=== PATIENT | female | born 1970 | race Caucasian/White ===

== ENCOUNTER 2019-06-02 13:10 | Emergency (ER) | payer OTHER, SELFPAY ==
[2019-06-02 13:24] VITALS: BP 126/92; PULSE 73; RESP 19; TEMP 36.8; O2SAT 99
--- NOTE | 2019-06-02 14:34 | ED.WOUNDLAC ---
HPI - Wound/Laceration <DIANNA Tim - Last Filed: 06/02/19 15:10> General Chief Complaint: Wound/Laceration Stated Complaint: Cut finger at work Time Seen by Provider: 06/02/19 13:41 Source: patient Mode of arrival: ambulatory Limitations: no limitations History of Present Illness HPI narrative: The patient is a 48-year-old female who denies medical history who presents with a chief complaint of a laceration to her left pointer finger. 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 Tetanus is up-to-date within the past year. She states she has full range of motion of her left 2nd digit. She states that work try to dress it, but could not get it to stop bleeding. She states it happened approximately 10 30 this morning. Review of Systems <DIANNA Tim - Last Filed: 06/02/19 15:10> Review of Systems GENERAL: Denies chills, fatigue, malaise, fever, sweats. HEENT: Denies sinus pain, ear pain, sore throat, difficulty swallowing, dizziness. RESPIRATORY: Denies dyspnea, cough, wheezing, hemoptysis, sputum. CARDIOVASCULAR: Denies chest pain, palpitations, orthopnea, edema, GASTROINTESTINAL: Denies nausea, vomiting, abdominal pain, diarrhea, constipation, melena. : Denies dysuria, frequency, incontinence, hematuria, urinary retention. MUSCULOSKELETAL: See HPI SKIN: See HPI NEUROLOGIC: Denies weakness, headache, numbness, change in speech, confusion, seizures, incoordination. PSYCHIATRIC: No concerning psychosocial issues. 12 point review of systems is negative except for those stated above PFSH <DIANNA Tim - Last Filed: 06/02/19 15:10> Medical History (Updated 06/02/19 @ 14:37 by DIANNA Tim) Medical history non-contributory (Acute) Social History Smoking Status: Never smoker Social History Smoking Status: Never smoker Exam <DIANNA Tim - Last Filed: 06/02/19 15:10> Narrative Exam Narrative: GENERAL: This is a well-nourished, well-developed patient, no acute distress HEAD: Atraumatic. Normocephalic. No temporal or scalp tenderness. EYES: Pupils equal round and reactive. Extraocular motions intact. No scleral icterus. No injection or drainage. ENT: Nose without bleeding, purulent drainage or septal hematoma. Throat without erythema, tonsillar hypertrophy or exudate. Uvula midline. Airway patent. NECK: Trachea midline. No JVD or lymphadenopathy. Supple, nontender, no meningeal signs. CARDIOVASCULAR: Regular rate and rhythm RESPIRATORY: No cough. No increased respiratory effort. No accessory muscle use. EXTREMITIES: Full range of motion noted left 2nd digit capillary refill less than 2 seconds left 2nd digit BACK: Nontender without deformity or crepitance. No flank tenderness. NEURO: AOx3. SKIN: 0.5 cm avulsion lateral aspect left 2nd digit. Through dermis. No obvious muscle or tendon involvement. Initial Vital Signs Initial Vital Signs: Vital Signs Temperature 98.3 F 06/02/19 13:24 Pulse Rate 73 06/02/19 13:24 Respiratory Rate 06/02/19 13:24 Blood Pressure 126/92 H 06/02/19 13:24 Pulse Oximetry 99 06/02/19 13:24 <Sarita Singletary DO - Last Filed: 06/02/19 18:53> Initial Vital Signs Initial Vital Signs: Vital Signs Temperature 98.3 F 06/02/19 13:24 Pulse Rate 73 06/02/19 13:24 Respiratory Rate 06/02/19 13:24 Blood Pressure 126/92 H 06/02/19 13:24 Pulse Oximetry 99 06/02/19 13:24 Course <JOVI Tim-JOSHUA - Last Filed: 06/02/19 15:10> Vital Signs - 8 hr 06/02/19 13:24 06/02/19 14:46 Temperature 98.3 F Pulse Rate 73 80 Respiratory Rate 19 16 Blood Pressure 126/92 H Blood Pressure [Right Arm] 110/84 Pulse Oximetry 99 100 <Sarita Singletary DO - Last Filed: 06/02/19 18:53> Vital Signs - 8 hr 06/02/19 13:24 06/02/19 14:46 Temperature 98.3 F Pulse Rate 73 80 Respiratory Rate 19 16 Blood Pressure 126/92 H Blood Pressure [Right Arm] 110/84 Pulse Oximetry 99 100 [facility] - Wound/Laceration <Abbie CisnerosJOVI navarro-BC - Last Filed: 06/02/19 15:10> [facility] Narrative Medical decision making narrative: The patient is a 48-year-old female presents with a chief complaint of a laceration. On exam she has an avulsion. Her tetanus is up-to-date the past year. Her laceration was cleansed at length with Hibiclens. It was dressed by nursing with Surgicel. She has full range of motion. Denies any need for x-ray at this point time. Discussed at length monitoring for signs and symptoms of infection. Patient has no questions or concerns upon discharge. Discharge Plan Departure Patient Disposition: Home Clinical Impression: Avulsion of skin Discharge Date/Time: 06/02/19 15:10 Interventions: ED Discharge Assessment Last Done: 06/02/19 15:10 Instructions: DI for Avulsion Laceration (Not Requiring Sutures) Activity Restrictions/Additional Instructions: Please monitor your injury for signs and symptoms of infection such as redness, swelling, pus. Please follow up with primary care provider. Please come back to the emergency department for any acute concerns. Referrals: Santino Da Silva MD [Primary Care Provider] - <Sarita Singletary DO - Last Filed: 06/02/19 18:53> [facility] ED Attending Hunterature Attestation: I was immediately available in the department for consultation. Documentation has been reviewed. I agree with assessment and plan.
--- NOTE | 2019-06-02 14:37 | ED_ITS ---
HPI - Wound/Laceration <DIANNA Tim - Last Filed: 06/02/19 15:10> General Chief Complaint: Wound/Laceration Stated Complaint: Cut finger at work Time Seen by Provider: 06/02/19 13:41 Source: patient Mode of arrival: ambulatory Limitations: no limitations History of Present Illness HPI narrative: The patient is a 48-year-old female who denies medical history who presents with a chief complaint of a laceration to her left pointer finger. 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 Tetanus is up-to-date within the past year. She states she has full range of motion of her left 2nd digit. She states that work try to dress it, but could not get it to stop bleeding. She states it happened approximately 10 30 this morning. Review of Systems <DIANNA Tim - Last Filed: 06/02/19 15:10> Review of Systems GENERAL: Denies chills, fatigue, malaise, fever, sweats. HEENT: Denies sinus pain, ear pain, sore throat, difficulty swallowing, dizziness. RESPIRATORY: Denies dyspnea, cough, wheezing, hemoptysis, sputum. CARDIOVASCULAR: Denies chest pain, palpitations, orthopnea, edema, GASTROINTESTINAL: Denies nausea, vomiting, abdominal pain, diarrhea, constipation, melena. : Denies dysuria, frequency, incontinence, hematuria, urinary retention. MUSCULOSKELETAL: See HPI SKIN: See HPI NEUROLOGIC: Denies weakness, headache, numbness, change in speech, confusion, seizures, incoordination. PSYCHIATRIC: No concerning psychosocial issues. 12 point review of systems is negative except for those stated above PFSH <DIANNA Tim - Last Filed: 06/02/19 15:10> Medical History (Updated 06/02/19 @ 14:37 by DIANNA Tim) Medical history non-contributory (Acute) Social History Smoking Status: Never smoker Social History Smoking Status: Never smoker Exam <DIANNA Tim - Last Filed: 06/02/19 15:10> Narrative Exam Narrative: GENERAL: This is a well-nourished, well-developed patient, no acute distress HEAD: Atraumatic. Normocephalic. No temporal or scalp tenderness. EYES: Pupils equal round and reactive. Extraocular motions intact. No scleral icterus. No injection or drainage. ENT: Nose without bleeding, purulent drainage or septal hematoma. Throat without erythema, tonsillar hypertrophy or exudate. Uvula midline. Airway patent. NECK: Trachea midline. No JVD or lymphadenopathy. Supple, nontender, no meningeal signs. CARDIOVASCULAR: Regular rate and rhythm RESPIRATORY: No cough. No increased respiratory effort. No accessory muscle use. EXTREMITIES: Full range of motion noted left 2nd digit capillary refill less than 2 seconds left 2nd digit BACK: Nontender without deformity or crepitance. No flank tenderness. NEURO: AOx3. SKIN: 0.5 cm avulsion lateral aspect left 2nd digit. Through dermis. No obvious muscle or tendon involvement. Initial Vital Signs Initial Vital Signs: Vital Signs Temperature 98.3 F 06/02/19 13:24 Pulse Rate 73 06/02/19 13:24 Respiratory Rate 06/02/19 13:24 Blood Pressure 126/92 H 06/02/19 13:24 Pulse Oximetry 99 06/02/19 13:24 <Sarita Singletary DO - Last Filed: 06/02/19 18:53> Initial Vital Signs Initial Vital Signs: Vital Signs Temperature 98.3 F 06/02/19 13:24 Pulse Rate 73 06/02/19 13:24 Respiratory Rate 06/02/19 13:24 Blood Pressure 126/92 H 06/02/19 13:24 Pulse Oximetry 99 06/02/19 13:24 Course <JOVI Tim-JOSHUA - Last Filed: 06/02/19 15:10> Vital Signs - 8 hr 06/02/19 13:24 06/02/19 14:46 Temperature 98.3 F Pulse Rate 73 80 Respiratory Rate 19 16 Blood Pressure 126/92 H Blood Pressure [Right Arm] 110/84 Pulse Oximetry 99 100 <Sarita Singletary DO - Last Filed: 06/02/19 18:53> Vital Signs - 8 hr 06/02/19 13:24 06/02/19 14:46 Temperature 98.3 F Pulse Rate 73 80 Respiratory Rate 19 16 Blood Pressure 126/92 H Blood Pressure [Right Arm] 110/84 Pulse Oximetry 99 100 [facility] - Wound/Laceration <Abbie BoatengJOVI-BC - Last Filed: 06/02/19 15:10> [facility] Narrative Medical decision making narrative: The patient is a 48-year-old female presents with a chief complaint of a laceration. On exam she has an avulsion. Her tetan us is up-to-date the past year. Her laceration was cleansed at length with Hibiclens. It was dressed by nursing with Surgicel. She has full range of motion. Denies any need for x-ray at this point time. Discussed at length monitoring for signs and symptoms of infection. Patient has no questions or concerns upon discharge. Discharge Plan Departure Patient Disposition: Home Clinical Impression: Avulsion of skin Discharge Date/Time: 06/02/19 15:10 Interventions: ED Discharge Assessment Last Done: 06/02/19 15:10 Instructions: DI for Avulsion Laceration (Not Requiring Sutures) Activity Restrictions/Additional Instructions: Please monitor your injury for signs and symptoms of infection such as redness, swelling, pus. Please follow up with primary care provider. Please come back to the emergency department for any acute concerns. Referrals: Santnio Da Silva MD [Primary Care Provider] - <Sarita Singletary DO - Last Filed: 06/02/19 18:53> [facility] ED Attending Hunterature Attestation: I was immediately available in the department for consultation. Documentation has been reviewed. I agree with assessment and plan.
[2019-06-02 14:46] VITALS: BP 110/84; PULSE 80; RESP 16; O2SAT 100
== END 2019-06-02 15:10 | disposition home or self-care (01) ==
PROVIDERS: Emergency Provider Nurse Practitioner Family; PCP Family Medicine
DX: S61.211A Laceration without foreign body of left index finger without damage to nail, initial encounter (principal); W26.8XXA Contact with other sharp object(s), not elsewhere classified, initial encounter; Y99.0 Civilian activity done for income or pay
CPT/HCPCS: 99282; 99283